=== PATIENT | male | born 1945 | race Asian ===

== ENCOUNTER 2017-11-19 10:22 | Emergency (ER) | payer MEDICARE, OTHER ==
[~2017-11-19] VITALS: Ht 167.6 cm; Wt 90.0 kg
[2017-11-19] MEDS ORDERED: TELM20 PO (10:26)
[2017-11-19] MEDS ORDERED: LEVO50 PO (10:26)
[2017-11-19] MEDS ORDERED: ETHYL CHLORIDE 103.5 ML SPRAY TP ONE (11:45)
[2017-11-19] MEDS ORDERED: PERTUSS(ACELL),DIPH,TET VAC/PF 0.5 ML VIAL IM ONE (12:00)
[2017-11-19 12:49] VITALS: BP 149/89
== END 2017-11-19 12:55 | disposition home or self-care (01) ==
LOC: EMS 10:22
DX: L03.012 Cellulitis of left finger (principal); I10 Essential (primary) hypertension; E03.9 Hypothyroidism, unspecified
CPT/HCPCS: 10060; 90471; 90715; 99283